=== PATIENT | female | born 1955 | race Caucasian/White ===

== ENCOUNTER 2018-05-11 17:11 | Emergency (ER) | payer OTHER ==
[~2018-05-11] VITALS: Ht 167.6 cm; Wt 76.0 kg
[~2018-05-11 17:11] MED LIST: ACET1TAB40 PO; AMLO5TAB4 PO; CIPR500T4 PO; DULO30CA47 PO; HYDR-3498 PO; MELO7.5T38 PO; METO-335 PO; METR-121 PO; NOL20 PO; ONDA4TAB8 PO; PANT40TA4 PO; ROSU10TA55 PO; SUMA25TA3 PO
[2018-05-11 17:26] VITALS: Ht 167.6 cm; Wt 76.0 kg
[2018-05-11] MEDS ORDERED: SODIUM CHLORIDE 0.9% 1L BAG IV* STA (17:29)
[2018-05-11] MEDS ORDERED: ACETAMINOPHEN 500 MG TAB PO STA (17:29)
[2018-05-11] MEDS ORDERED: OSELTAMIVIR 75 MG CAP PO ONE (19:00)
[2018-05-11] MEDS ORDERED: KETOROLAC 15 MG INJ IV STA (19:02)
[2018-05-11] MEDS ORDERED: SOD CHLORIDE 0.9% 1,000 ML IV ONE (20:00)
[2018-05-11] MEDS ORDERED: OSEL75CA23 PO (20:56)
[2018-05-11] MEDS ORDERED: HYDR-4011 PO (20:56)
--- NOTE | 2018-05-11 21:07 | ERD ---
ER Documentation Chief Complaint Chief Complaint BIB RESCUE. AP RADIATING LEFT ARM PAIN SINCE AM. HPI This is a 63-year-old female presents for evaluation of diffuse abdominal pain, as well as chills and body aches, associated with fever. Patient had a prolonged hospitalization in outside hospital, where she states she had multiple studies including endoscopy, MRIs, CTs all of which were negative for her pain. Today she endorses fever. She has no chest pain or shortness of breath. ROS All systems reviewed and are negative except as per history of present illness. Medications Home Meds Active Scripts Hydrocodone/Acetaminophen ([place] 5-325 Tablet) 1 Each Tablet, 1 TAB PO Q6H PRN for PAIN, #7 TAB Prov:SARAH RODRIGUEZ MD 05/11/18 Oseltamivir Phosphate* (Tamiflu*) 75 Mg Capsule, 75 MG PO BID for 5 Days, CAP Prov:SARAH RODRIGUEZ MD 05/11/18 Hydrocodone Bit-Acetaminophen* ([place]*) 5-325 Mg Tab, 1 TAB PO Q6 PRN for PAIN, #20 TAB Prov:JOSE REIS MD 04/26/15 Metronidazole (Flagyl) 500 Mg Tab, 500 MG PO Q8 for 5 Days, TAB Prov:JOSE REIS MD 04/26/15 Ciprofloxacin Hcl* (Ciprofloxacin Hcl*) 500 Mg Tablet, 500 MG PO BID for 5 Days, TAB Prov:JOSE REIS MD 04/26/15 Ondansetron Hcl* (Zofran*) 4 Mg Tablet, 4 MG PO Q6H for NAUSEA AND/OR VOMITING, #20 TAB Prov:JOSE REIS MD 04/26/15 Reported Medications Duloxetine Hcl* (Duloxetine Hcl*) 30 Mg Capsule., 30 MG PO DAILY, #30 CAP 04/26/15 Sumatriptan Succinate* (Sumatriptan Succinate*) 25 Mg Tablet, 25 MG PO BID PRN for HEADACHE, TAB May repeat after 2 hours if needed; MAX 200 mg/24 hours 04/26/15 Pantoprazole* (Pantoprazole*) 40 Mg Tablet.dr, 40 MG PO DAILY, TAB 04/26/15 Metoprolol Succinate* (Toprol XL*) 25 Mg Tab.sr.24h, 25 MG PO DAILY, #30 TAB 04/26/15 Meloxicam* (Meloxicam*) 7.5 Mg Tablet, 7.5 MG PO DAILY, #30 TAB 04/26/15 Acetaminophen-Codeine* (Acetaminophen-Cod #3*) 300-30 Mg Tab, 1 TAB PO Q4H PRN for PAIN, #30 TAB 04/26/15 Rosuvastatin Calcium* (Crestor*) 10 Mg Tablet, 10 MG PO QHS, #30 TAB 04/26/15 Amlodipine Besylate* (Norvasc*) 5 Mg Tablet, 5 MG PO DAILY, TAB 04/26/15 Tamoxifen Citrate* (Tamoxifen Citrate*) 20 Mg Tab, 20 MG PO DAILY, TAB 04/26/15 Allergies Allergies: Coded Allergies: No Known Allergy (Unverified , 04/26/15) PMhx/Soc History of Surgery: No Hx Neurological Disorder: No Hx Respiratory Disorders: No Hx Cardiac Disorders: No Hx Psychiatric Problems: No Hx Miscellaneous Medical Probl: Yes (LEFT BREAST CANCER ) Hx Alcohol Use: No Hx Substance Use: No Hx Tobacco Use: No Smoking Status: Never smoker Physical Exam Vitals Vital Signs Date Temp Pulse Resp B/P (MAP) Pulse Ox O2 O2 Flow FiO2 Time Delivery Rate 05/11/18 90 20 106/61 100 Room Air 20:40 (76) 05/11/18 98.4 96 20 117/76 99 Room Air 18:40 (90) 05/11/18 103.0 17:41 05/11/18 103.2 105 25 137/74 100 17:26 (95) Physical Exam Const: No acute distress Head: Atraumatic Eyes: Normal Conjunctiva ENT: Normal External Ears, Nose and Mouth. Neck: Full range of motion. No meningismus. Resp: Clear to auscultation bilaterally Cardio: Regular rate and rhythm, no murmurs Abd: Soft, non tender, non distended, no rebound or guarding. Normal bowel sounds Skin: No petechiae or rashes Back: No midline or flank tenderness Ext: No cyanosis, or edema Neur: Awake and alert Psych: Normal Mood and Affect Result Diagram: 05/11/18 1735 05/11/18 1735 Results 24 hrs Laboratory Tests Test 05/11/18 17:35 05/11/18 17:39 05/11/18 19:47 White Blood Count 10.8 10^3/ul Red Blood Count 4.80 10^6/ul Hemoglobin 13.1 g/dl Hematocrit 40.7 % Mean Corpuscular Volume 84.8 fl Mean Corpuscular Hemoglobin 27.3 pg Mean Corpuscular 32.2 g/dl Hemoglobin Concent Red Cell Distribution Width 13.2 % Platelet Count 362 10^3/UL Mean Platelet Volume 9.1 fl Immature Granulocytes % 0.400 % Neutrophils % 81.9 % Lymphocytes % 13.6 % Monocytes % 3.4 % Eosinophils % 0.5 % Basophils % 0.2 % Nucleated Red Blood Cells % 0.0 /100WBC Immature Granulocytes # 0.040 10^3/ul Neutrophils # 8.8 10^3/ul Lymphocytes # 1.5 10^3/ul Monocytes # 0.4 10^3/ul Eosinophils # 0.1 10^3/ul Basophils # 0.0 10^3/ul Nucleated Red Blood Cells # 0.0 10^3/ul Urine Color STRAW Urine Clarity CLEAR Urine pH 7.0 Urine Specific [place] 1.014 Urine Ketones NEGATIVE mg/dL Urine Nitrite NEGATIVE mg/dL Urine Bilirubin NEGATIVE mg/dL Urine Urobilinogen NEGATIVE mg/dL Urine Leukocyte Esterase NEGATIVE Srini/ul Urine Hemoglobin NEGATIVE mg/dL Urine Glucose NEGATIVE mg/dL Urine Total Protein NEGATIVE mg/dl Sodium Level 140 mmol/L Potassium Level 4.0 mmol/L Chloride Level 99 mmol/L Carbon Dioxide Level 23 mmol/L Anion Gap 18 Blood Urea Nitrogen 13 mg/dl Creatinine 0.80 mg/dl Est Glomerular Filtrat > 60 mL/min Rate mL/min Glucose Level 136 mg/dl Calcium Level 10.8 mg/dl Total Bilirubin 0.2 mg/dl Direct Bilirubin 0.00 mg/dl Indirect Bilirubin 0.2 mg/dl Aspartate Amino Transf (AST/SGOT) 53 IU/L Alanine 46 IU/L Aminotransferase (ALT/SGPT) Alkaline Phosphatase 85 IU/L Troponin I < 0.012 ng/ml Total Protein 8.7 g/dl Albumin 5.0 g/dl Globulin 3.70 g/dl Albumin/Globulin Ratio 1.35 Lipase 117 U/L POC Venous Lactate 4.2 mmol/L 2.7 mmol/L Current Medications Medications Dose Sig/Leyla Start Time Status Last (Trade) Ordered Route PRN Stop Time Admin Dose Reason Admin Sodium 1,000 ml BOLUS OVER 2 05/11/18 DC 05/11/18 Chloride HOURS STAT 17:29 17:39 (NS) IV* 05/11/18 17:34 1,000 mg ONCE STAT 05/11/18 DC 05/11/18 Acetaminophen PO 17:29 17:41 (Tylenol 05/11/18 17:34 Tab) Oseltamivir 75 mg ONCE ONCE 05/11/18 DC 05/11/18 Phosphate PO 19:00 19:39 (Tamiflu) 05/11/18 19:27 Ketorolac 15 mg ONCE STAT 05/11/18 DC 05/11/18 Tromethamine IV 19:02 19:14 (Toradol) 05/11/18 19:03 Sodium 1,000 ml @ Q1H ONCE 05/11/18 DC 05/11/18 Chloride 1,000 mls/hr IV 20:00 20:08 05/11/18 20:59 Procedures/MDM This 63-year-old female presents for evaluation of fever, on exam she has no clear bacterial source, her chest x-ray is negative, urinalysis is negative, as she has no cough, no urinary symptoms, she has had no nausea or vomiting. At this point I do not suspect sepsis or bacterial infection, her her fever seems most likely to be an influenza-like illness, [id number] lactate was noted to be elevated, this decreased with IV fluids, will treat empirically with Tamiflu, CT abdomen pelvis is pending, I discussed plan of care with family, offered admission, the patient's son and the patient, preferred to be discharged home and follow-up for further workup as an outpatient, should the patient CT abdomen pelvis be negative. If discharge she will be discharged with Tamiflu, signed out to Dr. Richard EKG: Rate/Rhythm: Normal Sinus Rhythm QRS, ST, T-waves: No changes consistent w/ acute ischemia Impression: No evidence of ischemia or arrhythmia Departure Diagnosis: Primary Impression: Influenza Additional Impression: Fever Fever type: unspecified Qualified Codes: R50.9 - Fever, unspecified Condition: Stable Patient Instructions: Influenza (Adult) Additional Instructions: Call your primary care doctor TOMORROW for an appointment during the next 2-3 days.See the doctor sooner or return here if your condition worsens before your appointment time. SARAH RODRIGUEZ MD May 11, 2018 21:06
[2018-05-11] MEDS ORDERED: DIPHENHYDRAMINE 50 MG INJ IV ONE (21:30)
[2018-05-11] MEDS ORDERED: AMLO-147 PO (23:00)
[2018-05-11] MEDS ORDERED: CYAN500T46 PO (23:02)
[2018-05-11] MEDS ORDERED: ERGO500013 PO (23:02)
[2018-05-12] VITALS: BP 115/72; PULSE 97; RESP 19
== END 2018-05-12 00:10 | disposition home or self-care (01) ==
LOC: E/R 17:11
DX: J11.1 Influenza due to unidentified influenza virus with other respiratory manifestations (principal); Z85.3 Personal history of malignant neoplasm of breast
CPT/HCPCS: 71045; 74176; 80053; 81003; 83605; 83690; 84484; 85025; 87040; 87086; 87400; 93005; 96374; 96375; J1200; J1885; J7030; Z7502; Z7610